=== PATIENT | female | born 1980 | race Native Hawaiian/Other Pacific Islander ===

== ENCOUNTER 2022-11-10 09:01 | Emergency (ER) | payer BC ==
[~2022-11-10] VITALS: Ht 160 cm; Wt 81.6 kg
[2022-11-10 09:11] VITALS: TEMP 98.8
[2022-11-10 10:55] VITALS: BP 159/93
== END 2022-11-10 11:02 | disposition home or self-care (01) ==
LOC: ED 09:01
DX: M25.561 Pain in right knee (principal); M17.11 Unilateral primary osteoarthritis, right knee; X50.1XXA Overexertion from prolonged static or awkward postures, initial encounter; Y92.89 Other specified places as the place of occurrence of the external cause
CPT/HCPCS: 81025; 99283